=== PATIENT | female | born 1985 | race Caucasian/White ===

== ENCOUNTER 2017-05-21 13:13 | Emergency (ER) | payer OTHER ==
[2017-05-21] MEDS ORDERED: Fentanyl 100 MCG/2 ML VIAL ONE ×3 (14:03→16:07)
[2017-05-21] MEDS ORDERED: Sodium Chloride 0.9% 1,000 ML ONE ×2 (14:03→15:54)
[2017-05-21 14:31] LABS: Bilirubin Negative (Negative); Blood, Urine Negative (Negative); Clarity Slightly Cloudy (Clear); Glucose, Urine (Dipstick) Negative (Negative); Leukocyte Trace (Negative); Nitrite Negative (Negative); Protein, Urine (Dipstick) Negative (Neg-Trace); Specific Gravity, Urine 1.025 (1.005-1.030); Urobilinogen 0.2 mg/dL (0.2-1.0)
[2017-05-21 14:35] LABS: #Basophils 0.1 thou/uL (0.0-0.2); #Eosinphils 0.2 thou/uL (0.0-0.7); #Lymphocytes 1.8 thou/uL (1.20-3.40); #Monocytes 0.6 thou/uL (0.11-0.59); #Neutrophils 6.7 thou/uL (1.40-6.50); %Basophils 0.6 % (0.0-1.0); %Eosinophils 1.8 % (0.0-10.0); %Lymphocytes 19.5 % (21.0-51.0); %Monocytes 5.9 % (0.0-10.0); %Neutrophils 72.2 % (42.0-75.0); Hemoglobin 14.3 g/dL (12.0-16.0); Mean Corpuscular HGB CONC 34.3 g/dL (32.0-36.0); Mean Corpuscular Volume 90.3 fl (81.0-99.0); Mean Platelet Volume 9.7 fL (7.4-10.4); Platelet Count 222 thou/uL (130-400); RBC Distribution Width 10.5 % (11.5-14.5); White Blood Cell (WBC) Count 9.3 thou/uL (4.8-10.8)
[2017-05-21 14:40] LABS: RBC/HPF 0-3 HPF (0-3); WBC/HPF 21-50 HPF (0-3)
[2017-05-21 14:41] LABS: Bacteria/HPF 1+ HPF (None Seen); Crystals/HPF 1+ AMORPH URATES HPF (Negative); Pregnancy Test - Urine (BHCG) Negative (Negative); Pregu Control Background? CLEAR/WHITE (CLR/WHITE); Pregu Control Bar Appear? YES (CONTROL BAR); Specific Gravity 1.025 (1.002-1.036)
[2017-05-21 14:42] LABS: ALT (SGPT) 18 U/L (8-55); AST (SGOT) 19 U/L (5-34); Albumin 4.2 g/dL (3.5-5.0); Alkaline Phosphatase 54 U/L (40-150); Anion Gap 13 mmol/L (10-20); BUN (Urea Nitrogen) 8 mg/dL (7.0-18.7); Bilirubin, Total 0.6 mg/dL (0.2-1.2); Calc. Creatinine Clearance 0 mL/min (70-130); Calcium 9.3 mg/dL (7.8-10.44); Carbon Dioxide 21 mmol/L (22-29); Chloride 105 mmol/L (98-107); Estimated GFR-MDRD Greater than 90; Globulin 3.3 g/dL (2.4-3.5); Glucose 114 mg/dL (70-105); Potassium 3.7 mmol/L (3.5-5.1); Protein, Total 7.5 g/dL (6.0-8.3); Sodium 135 mmol/L (136-145)
--- NOTE | 2017-05-21 15:40 | CT ---
CT ABDOMEN AND PELVIS WITH IV CONTRAST: 05/21/17 Multiple axial tomograms obtained through the abdomen and pelvis. At the beginning of procedure, jessika ent complained of pain at the IV site. The injection was stopped and therefore there is minimal contr ast opacification on this study. Only approximately 40 mL of contrast was injected according to the t echnologist. HISTORY: Right abdominal pain. FINDINGS: The lung bases are clear. Liver, spleen and pancreas appear unremarkable. The gallbladder is distended and there is evidence of pericholecystic edema. No radiopaque gallstones are seen; however, cholesterol stones will not be apparent by CT. Recommend further evaluation with gallbladder ultrasound. The CT findings are suggestive of cholecystitis. Adrenal glands are normal. The kidneys are unremarkable. tiny amount of contrast is seen in the proxi mal collecting structures of the kidneys. Small bowel loops are normal caliber. The appendix is not definitely identified. there is stool thro ughout the colon. Images through the pelvis show mildly prominent uterus. Evidence of a small cyst in the left ovary wh ich measures approximately 2.0 cm. There is free fluid in the cul-de-sac. IMPRESSION: 1. Gallbladder appears abnormal. There is mild gallbladder distention with pericholecystic edema . Recommend further evaluation with gallbladder ultrasound. 2. Small left ovarian cyst. Small amount of free fluid in the cul-de-sac. POS: [facility]
== END 2017-05-21 16:33 | disposition short-term general hospital (02) ==
LOC: NAV ERS 13:13
DX: K81.9 Cholecystitis, unspecified (principal); F32.9 Major depressive disorder, single episode, unspecified; F17.210 Nicotine dependence, cigarettes, uncomplicated
CPT/HCPCS: 36415; 74177; 80053; 81003; 81015; 81025; 85025; 96361; 96374; 96376; J3010; J7050

== ENCOUNTER 2017-06-24 21:24 | Emergency (ER) | payer OTHER ==
[~2017-06-24 21:24] MED LIST: Iopamidol 370 76% 100 ML VIAL ONE
[2017-06-24 21:59] LABS: #Basophils 0.1 thou/uL (0.0-0.2); #Eosinphils 0.1 thou/uL (0.0-0.7); #Lymphocytes 1.2 thou/uL (1.20-3.40); #Monocytes 0.4 thou/uL (0.11-0.59); #Neutrophils 3.4 thou/uL (1.40-6.50); %Basophils 1.2 % (0.0-1.0); %Eosinophils 2.5 % (0.0-10.0); %Lymphocytes 22.9 % (21.0-51.0); %Monocytes 6.9 % (0.0-10.0); %Neutrophils 66.5 % (42.0-75.0); Hemoglobin 13.7 g/dL (12.0-16.0); Mean Corpuscular HGB CONC 33.4 g/dL (32.0-36.0); Mean Corpuscular Hemoglobin 29.9 pg (27.0-31.0); Mean Corpuscular Volume 89.5 fl (81.0-99.0); Mean Platelet Volume 9.3 fL (7.4-10.4); Platelet Count 194 thou/uL (130-400); RBC Distribution Width 11.1 % (11.5-14.5); Red Blood Cell (RBC) Count 4.59 mill/uL (4.20-5.40); White Blood Cell (WBC) Count 5.1 thou/uL (4.8-10.8)
[2017-06-24 22:04] LABS: Bilirubin Large (Negative); Blood, Urine Negative (Negative); Clarity Clear (Clear); Glucose, Urine (Dipstick) Negative (Negative); Leukocyte Negative (Negative); Nitrite Negative (Negative); Protein, Urine (Dipstick) Negative (Neg-Trace)
[2017-06-24] MEDS ORDERED: Ketorolac Tromethamine 30 MG/ML VIAL ONE (22:05)
[2017-06-24] MEDS ORDERED: Ondansetron HCl/PF 4 MG/2 ML Vial ONE (22:05)
[2017-06-24] MEDS ORDERED: Dicyclomine 20 MG TAB ONE (22:05)
[2017-06-24] MEDS ORDERED: Sodium Chloride 0.9% 1,000 ML ONE (22:05)
[2017-06-24 22:08] LABS: Pregnancy Test - Urine (BHCG) Negative (Negative); Pregu Control Background? CLEAR/WHITE (CLR/WHITE); Pregu Control Bar Appear? YES (CONTROL BAR); Specific Gravity 1.016 (1.002-1.036)
[2017-06-24 22:09] LABS: Specific Gravity, Urine 1.016 (1.002-1.036)
[2017-06-24 22:14] LABS: ALT (SGPT) 625 U/L (8-55); Albumin 4.2 g/dL (3.5-5.0); Alkaline Phosphatase 299 U/L (40-150); Anion Gap 16 mmol/L (10-20); BUN (Urea Nitrogen) 11 mg/dL (7.0-18.7); Bilirubin, Total 5.7 mg/dL (0.2-1.2); Calc. Creatinine Clearance 0 mL/min (70-130); Calcium 9.5 mg/dL (7.8-10.44); Carbon Dioxide 23 mmol/L (22-29); Chloride 105 mmol/L (98-107); Estimated GFR-MDRD Greater than 90; Globulin 3.8 g/dL (2.4-3.5); Glucose 97 mg/dL (70-105); Lipase 14 U/L (8-78); Potassium 4.6 mmol/L (3.5-5.1); Sodium 139 mmol/L (136-145)
[2017-06-24 22:57] LABS: AST (SGOT) 341 U/L (5-34)
[2017-06-24] MEDS ORDERED: Fentanyl 100 MCG/2 ML VIAL ONE (23:19)
[2017-06-24] MEDS ORDERED: Meropenem 500 MG VIAL ONE (23:20)
--- NOTE | 2017-06-25 07:11 | RAD ---
PORTABLE AP CHEST X-RAY: 06/24/2017 HISTORY: Intermittent epigastric pain since last night. History of cholecystectomy. COMPARISON: 05/21/2017. FINDINGS: The cardiac silhouette and pulmonary vasculature are within normal limits. The lungs are clear. The re has been no interval change from the prior study. IMPRESSION: No acute cardiopulmonary process. POS: [facility]
--- NOTE | 2017-06-25 08:00 | CT ---
CT ABDOMEN AND PELVIS WITH IV CONTRAST: DATE: 06/24/17. HISTORY: Intermittent epigastric pain since last night. History of cholecystectomy. COMPARISON: 05/21/17. FINDINGS: Post cholecystectomy changes are noted. There is mild biliary ductal dilatation likely related to re servoir effect. In addition, there is a suggestion of mild periportal edema which is overall nonspec ific and could be related to volume status as the IVC and hepatic veins are distended. However, gerald elation with liver function tests is recommended. The lung bases, spleen, pancreas, bilateral adrenal glands, kidneys, abdominal aorta, urinary bladder , and uterus as well as adnexal structures demonstrate a normal CT appearance. No dilated loops of small bowel are visualized. The appendix is visualized and normal in caliber. There is a tiny amount of free fluid in the pelvis which is probably physiologic in origin. No fluid collection is seen in the abdomen. A few mildly prominent but nonspecific periaortic lymph nodes are seen which is stable from the prior study and is overall nonspecific. No enlarged lymph no susana are seen by CT size criteria. No other interval change. IMPRESSION: 1. Post cholecystectomy changes in addition to mild periportal edema. While periportal edema is ove rall nonspecific and can be related to volume status, correlation with liver function tests is recomm ended. 2. No CT evidence of appendicitis. 3. Small amount of free fluid in the pelvis which is probably physiologic in origin. POS: [facility]
== END 2017-06-25 00:12 | disposition short-term general hospital (02) ==
LOC: NAV ERS 21:24
DX: K75.9 Inflammatory liver disease, unspecified (principal); F32.9 Major depressive disorder, single episode, unspecified; F17.210 Nicotine dependence, cigarettes, uncomplicated
CPT/HCPCS: 71045; 74177; 80053; 81003; 81025; 83690; 85025; 96361; 96374; 96375; J1885; J2185; J2405; J3010; J7050

== ENCOUNTER 2017-07-18 12:21 | Emergency (ER) | payer OTHER ==
[2017-07-18] MEDS ORDERED: Oseltamivir 75 MG CAP ONE (12:59)
== END 2017-07-18 13:03 | disposition home or self-care (01) ==
LOC: NAV ERS 12:21
DX: J11.1 Influenza due to unidentified influenza virus with other respiratory manifestations (principal); F32.9 Major depressive disorder, single episode, unspecified; F17.210 Nicotine dependence, cigarettes, uncomplicated
CPT/HCPCS: 99283

== ENCOUNTER 2018-12-12 21:03 | Emergency (ER) | payer OTHER, SELFPAY ==
[2018-12-12] MEDS ORDERED: Sodium Chloride 0.9% 1,000 ML ONE (21:25)
[2018-12-12] MEDS ORDERED: Ondansetron PF 4 MG/2 ML Vial ONE (21:25)
[2018-12-12] MEDS ORDERED: Morphine 4 MG/ML VIAL ONE ×2 (21:25→23:27)
[2018-12-12 21:48] LABS: Bilirubin Negative (Negative); Blood, Urine Trace (Negative); Clarity Clear (Clear); Glucose, Urine (Dipstick) Negative (Negative); Leukocyte Negative (Negative); Nitrite Negative (Negative); Protein, Urine (Dipstick) Trace mg/dL (Neg-Trace); Urobilinogen 0.2 mg/dL (Less than 2)
[2018-12-12 21:51] LABS: Pregnancy Test - Urine (BHCG) Negative (Negative)
[2018-12-12 21:52] LABS: Pregu Control Background? CLEAR/WHITE (CLR/WHITE); Pregu Control Bar Appear? YES (CONTROL BAR); Specific Gravity 1.015 (1.002-1.036)
[2018-12-12 21:57] LABS: Hemoglobin 14.5 g/dL (12.0-16.0); Lymphocytes 23 % (21-51); MDiff Complete? YES; Mean Corpuscular HGB CONC 32.9 g/dL (32.0-36.0); Mean Corpuscular Hemoglobin 29.4 pg (27.0-31.0); Mean Corpuscular Volume 89.2 fL (78.0-98.0); Mean Platelet Volume 7.5 fL (7.4-10.4); Monocytes 6 % (0-10); Neutrophil 71 % (42-75); Platelet Count 255 thou/uL (130-400); Platelet Morphology Comment Appears Adequate; RBC Distribution Width 10.9 % (11.5-14.5); RBC Morphology Normal; Red Blood Cell (RBC) Count 4.95 mill/uL (4.20-5.40); White Blood Cell (WBC) Count 10.5 thou/uL (4.8-10.8)
[2018-12-12 22:00] LABS: ALT (SGPT) 17 U/L (8-55); AST (SGOT) 14 U/L (5-34); Alkaline Phosphatase 90 U/L (40-150); Anion Gap 14 mmol/L (10-20); BUN (Urea Nitrogen) 7 mg/dL (7.0-18.7); Bilirubin, Total 0.6 mg/dL (0.2-1.2); Calc. Creatinine Clearance 0 mL/min (70-130); Carbon Dioxide 24 mmol/L (22-29); Chloride 101 mmol/L (98-107); Estimated GFR-MDRD Greater than 90; Globulin 3.4 g/dL (2.4-3.5); Glucose 117 mg/dL (70-105); Potassium 3.5 mmol/L (3.5-5.1); Protein, Total 7.4 g/dL (6.0-8.3); Sodium 135 mmol/L (136-145)
--- NOTE | 2018-12-12 23:16 | CT ---
EXAM: CT ABDOMEN AND PELVIS HISTORY: Abdominal pain with bloody stools, x2 days COMPARISON: 06/24/2017 Procedure: Multiple contiguous axial images were obtained and a CT of the abdomen and pelvis with IV contrast. C oronal reformats were performed. FINDINGS: Lower Chest: within normal limits. Vessels: Normal caliber aorta Heart: Normal size. No pericardial effusion Abdomen: Portal vein:Patent Gallbladder: Surgically absent gallbladder Liver: within normal limits. Pancreas: within normal limits. Spleen: within normal limits. Adrenals: within normal limits. Kidneys: Symmetric enhancement. No obstructive uropathy. Peritoneum: There is free fluid in the right hemiabdomen, tracking along the pericolic gutter and adj acent to the right hemicolon. Small amount of fluid in Camargo's pouch. Bowel: Limited evaluation due to lack of oral contrast. No evidence of small bowel obstruction. 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 Normal caliber appendix. There is mucosal thickening with pericolonic fat stranding involving the cecum, ascending colon and p roximal transverse colon. There is slight caliber change in the mid transverse colon. Nevertheless, there is mild mucosal thickening involving the remainder the transverse colon, descending colon. The sigmoid colon does demonstrate diverticula without evidence of inflammatory change. Mesentery and Retroperitoneum: Nonspecific periaortic and aortocaval lymph nodes are noted. Abdominal Wall: within normal limits. Pelvis: Reproductive Organs: Uterus and adnexal structures are grossly unremarkable. Pelvis: There is free fluid in the pelvis. Bladder: within normal limits. Bones: within normal limits. IMPRESSION: Diffuse bowel wall thickening and pericolonic fluid/fat stranding. A pancolitis due to an infectious or inflammatory process favored. Transcribed Date/Time: 12/12/2018 11:23 PM
[2018-12-12] MEDS ORDERED: Levofloxacin 500 mg/D5W 100 ml Premix Bag ONE (23:21)
== END 2018-12-13 00:35 | disposition home or self-care (01) ==
LOC: NAV ERS 21:03
DX: K52.9 Noninfective gastroenteritis and colitis, unspecified (principal); F32.9 Major depressive disorder, single episode, unspecified; F17.210 Nicotine dependence, cigarettes, uncomplicated
CPT/HCPCS: 36415; 74177; 80053; 81003; 81025; 85025; 96361; 96365; 96375; 96376; J1956; J2270; J2405; J7050

== ENCOUNTER 2024-05-20 15:08 | Emergency (ER) | payer BC, SELFPAY ==
[2024-05-20] MEDS ORDERED: Lidocaine 1% (PF) 30 ML VIAL ONE (15:56)
[2024-05-20] MEDS ORDERED: Boostrix 0.5 ML (Tdap) VIAL (>/=7 yrs of age) ONE (16:39)
== END 2024-05-20 17:01 | disposition home or self-care (01) ==
LOC: NAV ERS 15:08
DX: S81.852A Open bite, left lower leg, initial encounter (principal); S81.812A Laceration without foreign body, left lower leg, initial encounter; F17.210 Nicotine dependence, cigarettes, uncomplicated; W54.0XXA Bitten by dog, initial encounter
CPT/HCPCS: 12002; 90471; 90715

== ENCOUNTER 2024-06-09 10:57 | Emergency (ER) | payer BC | END 2024-06-09 11:22 | disposition home or self-care (01) | LOC: NAV ERS 10:57 | DX: S81.852D Open bite, left lower leg, subsequent encounter (principal); F17.210 Nicotine dependence, cigarettes, uncomplicated; W54.0XXD Bitten by dog, subsequent encounter | CPT/HCPCS: 99281 ==